=== PATIENT | female | born 1980 | race Two or more races ===

== ENCOUNTER 2024-11-02 10:25 | Emergency (ER) | payer MEDICAID, SELFPAY ==
[2024-11-02 10:26] VITALS: BMI 35.4
[2024-11-02 11:10] VITALS: BP 169/92; PULSE 99; RESP 19; TEMP 37.2; O2SAT 100
--- NOTE | 2024-11-02 11:16 | XR_ITS ---
Examination: CT abdomen and pelvis without contrast. Coronal 3-D reconstructions. Sagittal 2-D reconstructions. Date and time of exam:November 02, 2024 1358 hrs. Indications: Left lower abdominal pelvic pain beginning 2 days ago CTDI: vol (mGy): 12.9 DLP: (mGycm): 687 Technique: Axial images of the abdomen have been obtained, 3 mm slice thickness Intravenous contrast material has not been administered. Low dose protocols were performed. One or more of the following dose reduction techniques were used; automated exposure control, adjustment of the mA and/or KV according to patient size, use of iterative reconstruction technique. Findings: No focal liver lesions or biliary tract dilatation Absent gallbladder Spleen is not enlarged No pancreatic mass Mild left hydronephrosis secondary to 4 mm distal left ureterovesical junction calculus Normal appendix No bowel obstruction Anteverted uterus with mildly enlarged fundus Intact osseous structures Impression: Mild left hydronephrosis secondary to 4 mm distal left ureterovesical junction calculus
--- NOTE | 2024-11-02 11:17 | PD.EDRME ---
Rapid Medical Screening Exam RME Arrival date/time: 11/02/24 10:25 44-year-old female presents emergency department complains of left flank pain and left lower abdominal pain Chief Complaint: Urogenital-Female Time Seen by Provider: 11/02/24 11:08 Vital signs: Vital Signs Temperature 99.0 F 11/02/24 11:10 Pulse Rate 99 11/02/24 11:10 Respiratory Rate 19 11/02/24 11:10 Blood Pressure 169/92 H 11/02/24 11:10 Pulse Oximetry (%) 100 11/02/24 11:10 Oxygen Delivery Method Room Air 11/02/24 11:10
[2024-11-02 11:30] LABS: Basophils % (Auto) 0 % (0-2.5); Eosinophils % (Auto) 0 % (0-10); Hemoglobin 9.1 g/dL (12.0-16.0); Immature Granulocytes % (Auto) 1 % (0-0); Immature Granulocytes Auto 0.14 Thou/mm3 (0.00-0.00); Lymphocytes # (Auto) 1.4 Thou/mm3 (1.0-4.8); Lymphocytes % (Auto) 7 % (10-50); Mean Corpuscular HGB Conc 30.3 g/dl (31.0-37.0); Mean Corpuscular Hemoglobin 19.4 pg (25.0-35.0); Mean Corpuscular Volume 64 fL (80-100); Monocytes # (Auto) 1.9 Thou/mm3 (0.0-0.8); Monocytes % (Auto) 9 % (0-12); Neutrophils % (Auto) 84 % (37-80); Nucleated Red Blood Cell % 0 /100 WBC (0); Platelet Count 460 Thou/mm3 (140-440); RDW Standard Deviation 40.6 fL (36.4-46.3); White Blood Count 21.5 Thou/mm3 (3.6-11.0)
[2024-11-02 11:46] LABS: Alanine Aminotransferase 16 U/L (10-49); Albumin, Serum 4.5 gm/dL (3.5-5.0); Albumin/Globulin Ratio 1.2 (1.2-2.2); Alkaline Phosphatase 71 U/L (46-116); Anion Gap 10 (7-16); Aspartate Amino Transferase 22 U/L (0-34); BUN/Creatinine Ratio 12 Ratio (12-20); Bilirubin,Total 0.7 mg/dL (0.3-1.2); Blood Urea Nitrogen 11 mg/dL (9-23); Calcium 8.8 mg/dL (8.3-10.6); Calcium (Corrected) 8.8 mg/dL (8.5-10.1); Carbon Dioxide 22.7 mMol/L (20.0-31.0); Chloride 102 mMol/L (98-107); Creatinine (Component) 0.9 mg/dL (0.6-1.3); Estimated Creatinine Clearance 83.5 mL/min (>60); Globulin 3.8 gm/dL (2.3-3.5); Glucose 118 mg/dL (74-106); Lipase 32 U/L (12-53); Osmolality,Calculated 270 (275-295); Potassium 3.7 mMol/L (3.4-5.1); Sodium 135 mMol/L (136-145); Total Protein 8.3 gm/dL (5.7-8.2); eGFR > 60 See Note
[2024-11-02 13:11] LABS: Collection Type, Urine Clean Catch
[2024-11-02 13:21] LABS: Bilirubin,Urine Negative (Negative); Blood,Urine Trace (Negative); Clarity,Urine Turbid (Clear/Hazy); Color,Urine Yellow (Lt Yel-Yel); Culture Indicated,Urine Contaminated; Glucose, Urine Negative (Negative); Ketones,Urine 1+ (Negative); Leukocyte Esterase,Urine Positive (Negative); Nitrite,Urine Negative (Negative); Protein,Urine 1+ (Neg - Trace); RBC,Urine 22 /hpf (0-3); Specific Gravity,Urine 1.032 (1.001-1.035); Squamous Epithelial Cell,Urine 19 /hpf (0-5); Urobilinogen,Urine Negative mg/dL (0.0-1.0); WBC,Urine 11 /hpf (0-5)
[2024-11-02 13:25] LABS: HCG Qualitative,Urine Negative
[2024-11-02 14:54] VITALS: BP 162/96; PULSE 94; RESP 18; TEMP 37.2; O2SAT 99
[2024-11-02 15:16] LABS: Path Review Blood Smear Sent to Pathologist
--- NOTE | 2024-11-02 16:40 | EDNOTE_ITS ---
ED Female Urogenital RME/HPI General Chief complaint: Urogenital-Female Stated complaint: L FLANK PAIN AND VOMITING SINCE YESTERDAY Time Seen by Provider: 11/02/24 11:08 Arrival date/time: 11/02/24 10:25 This is a 44-year-old female presents emergency department complains of left flank pain and left lower abdominal pain. RME / HPI RME / HPI Narrative: 11/02/24 10:25 44-year-old female presents emergency department complains of left flank pain and left lower abdominal pain Related Data Previous Rx's ?Medication ?Instructions ?Recorded ibuprofen 800 mg tablet 800 mg PO Q6H PRN pain #14 t abs 11/02/24 ondansetron 4 mg disintegrating 4 mg PO Q6H PRN nausea and 11/02/24 tablet vomiting #10 tabs tamsulosin 0.4 mg capsule (Flomax) 0.4 mg PO QDAY #7 c aps 11/02/24 Allergies Allergy/AdvReac Type Severity Reaction Status Date / Time No Known Drug Allergies Allergy Verified 11/02/24 10:27 Review of Systems Review of Systems Systems Reviewed: All systems reviewed, normal except as documented Past Medical History Past Medical History Comments PMH COMMENT: denies ED Exam General General appearance: Present alert and in no apparent distress Head Head exam: Present atraumatic Eye Eye exam: Present normal appearance, PERRL and EOMI ENT ENT exam: Present normal exam, normal oropharynx and mucous membranes moist Neck Neck exam: Present normal inspection, full ROM and trachea midline Chest Chest inspection: Present normal inspection and symmetric chest wall rise Respiratory Respiratory exam: Present normal lung sounds bilaterally Cardiovascular Cardiovascular exam: Present regular rate and normal rhythm Abdominal Exam Abdominal exam: Present soft and other (no cva tenderness ) Extremities Exam Extremities exam: Present normal inspection and full ROM Back Exam Back exam: Present normal inspection and full ROM Neurological Exam Neurological exam: Present alert, oriented X3 and CN II-XII intact Psychiatric Psychiatric exam: Present normal affect and normal mood Skin Skin exam: Present warm, dry, intact and normal color Course Quality Measures none Orders Category Date Time Status CT abdomen pelvis wo con Stat Exams 11/02/24 11:16 Completed CBC Stat Lab 11/02/24 11:22 Completed Comprehensive Metabolic Panel Stat Lab 11/02/24 11:22 Completed HCG Qualitative,Urine Stat Lab 11/02/24 12:40 Completed Lipase Stat Lab 11/02/24 11:22 Completed Path Review Blood Smear Stat Lab 11/02/24 11:22 Completed UA, C/S IF [Urinalysis, C/S if Indicated] Stat Lab 11/02/24 12:40 Completed Urine Culture Stat Lab 11/02/24 12:40 Completed HYDROcodone*/APAP 5/325 [[place] 5/325] Med 11/02/24 16:39 Discontinued 1 tab PO X1 ONE Ketorolac Inj [Toradol Inj] Med 11/02/24 16:39 Discontinued 60 mg IM X1 ONE Metoclopramide Inj [Reglan Inj] Med 11/02/24 16:39 Discontinued 10 mg IM X1 ONE cefTRIAXone [Rocephin] 1,000 mg Med 11/02/24 16:39 Discontinued Lidocaine 1% 20 ml [Xylocaine 1% 20 ML] 2.1 ml IM X1 Vital Signs Vital signs: Vital Signs Temperature 99.0 F 11/02/24 11:10 Pulse Rate 99 11/02/24 11:10 Respiratory Rate 19 11/02/24 11:10 Blood Pressure 169/92 H 11/02/24 11:10 Pulse Oximetry (%) 100 11/02/24 11:10 Oxygen Delivery Method Room Air 11/02/24 11:10 Urogenital - Female MDM Narrative MDM Narrative:: Findings: No focal liver lesions or biliary tract dilatation Absent gallbladder Spleen is not enlarged No pancreatic mass Mild left hydronephrosis secondary to 4 mm distal left ureterovesical junction calculus Normal appendix No bowel obstruction Anteverted uterus with mildly enlarged fundus Intact osseous structures Impression: Mild left hydronephrosis secondary to 4 mm distal left ureterovesical junction calculus Labs significant for elevation in wbc 21.5, hgb and hct of 9.1/30.0. plt 460, 84 neutrophil count, bmp unremarkable, urine showed blood and leukocyte estrase, tx with rocephin. Pt given norco toradol and reglan for pain. pt told to follow up with primary provider in 1-2 days. Come back to ED if symptoms change or worsen. Patient data External records reviewed:: [facility] previous records Clinical information provided by:: patient Social determinants that could affect healthcare access:: none Patient has the following chronic illnesses:: none How is presenting disease/condition affected by chronic disease/condition?: no chronic disease Evaluation data The following diagnostics were reviewed and interpreted by me:: lab results and radiology exam(s) Lab and/or radiology exams considered but not ordered:: none Interpretation Summary: see hpi Medications / Prescriptions Medications or Prescriptions considered but not ordered:: none Medication administrations:: Medication Administration History Discontinued Medications Hydrocodone Bitart/Acetaminophen (Hydrocodone/[place]ap 5/325 Tablet) 1 tab PO X1 ONE Stop: 11/02/24 16:40 Last Admin: 11/02/24 17:09 Dose: 1 tab Documented By: YUE Ceftriaxone Sodium 1,000 mg/ (Lidocaine HCl 2.1 ml) 0 mg IM X1 ONE Stop: 11/02/24 16:40 Last Admin: 11/02/24 17:09 Dose: 1,000 mg Documented By: YUE Ketorolac Tromethamine (Ketorolac Inj 60 Mg/2 Ml Vial) 60 mg IM X1 ONE Stop: 11/02/24 16:40 Last Admin: 11/02/24 17:09 Dose: 60 mg Documented By: YUE Metoclopramide HCl (Metoclopramide Inj 5 Mg/Ml Vial 2 Ml) 10 mg IM X1 ONE; Protocol Stop: 11/02/24 16:40 Last Admin: 11/02/24 17:09 Dose: 10 mg Documented By: YUE see mar Consultations Consultation(s) initiated? (list below): No Diagnosis Urogenital Female Differential Diagnosis: urinary tract infection, cystitis and other (kidney stone ) Most likely diagnosis given after review of the tests above:: uti with kidney stone Admission Indicated Admission indicated?: not indicated Admission Request Was there a request for admission?: No Disposition Plan Disposition Plan: Discharge Discharge Attestation Discharge Attestation: The patient and all family members were given an opportunity to ask questions and understood the discharge instructions. Discharge instructions specifically effects, indications for sooner follow up or return to the emergency department, and the expected course of current diagnosis. Patient condition: Stable Discharge Plan Plan Patient Disposition: HOME (Self Care) Patient condition on transfer: Stable Prescriptions/Referrals Prescriptions/Med Rec: New ondansetron 4 mg tablet,disintegrating 4 mg PO Q6H PRN (Reason: nausea and vomiting) Qty: 10 0RF ibuprofen 800 mg tablet 800 mg PO Q6H PRN (Reason: pain) Qty: 14 0RF tamsulosin [Flomax] 0.4 mg capsule 0.4 mg PO QDAY Qty: 7 0RF Referrals: No Primary/Family,Physician [Primary Care Provider] - In 1 week Problem List Clinical Impression: Urinary tract infection, Kidney stone Patient/Caregiver Discharge Instructions Discharge Activity: activity as tolerated Education Materials: ED Hematuria, ED CYSTITIS Female Adult, ED Kidney Stone w/ Colic Additional Instructions: Drink plenty of fluids. Come back to the emergency room if symptoms change or worsen. Follow-up with primary provider in 1 to 2 days. Print Language: Russian Stand Alone Forms: [place] Award Info., Patient Portal Info Letter PA/STONEMASON APPRENTICE Supervising Physician PA/STONEMASON APPRENTICE Supervising Physician: maday
[2024-11-02] MEDS: KETOROLAC INJ 60 MG/2 ML VIAL IM (17:09)
[2024-11-02] MEDS: HYDROcodone/APAP 5/325 TABLET 1 TAB PO (17:09)
[2024-11-02] MEDS: METOCLOPRAMIDE INJ 5 MG/ML VIAL 2 ML 10 MG IM (17:09)
[2024-11-02] MEDS: cefTRIAXone 1,000 MG, LIDOCAINE 1% 20 ML 2.1 ML IM (17:09)
[2024-11-02 17:58] VITALS: BP 135/62; PULSE 65; RESP 18; TEMP 36.6; O2SAT 98
== END 2024-11-02 18:01 | disposition home or self-care (01) ==
PROVIDERS: Nurse Practitioner Primary Care; Emergency Provider Emergency Medicine
DX: N13.6 Pyonephrosis (principal)
CPT/HCPCS: 36415; 74176; 80053; 81001; 81025; 83690; 85025; 87086; 96372; 99284; J0696; J1885; J2765; J3490; A9270